=== PATIENT | female | born 1955 | race Caucasian/White ===

== ENCOUNTER 2018-08-18 12:20 | Emergency (ER) | payer MEDICAID ==
[~2018-08-18] VITALS: Ht 170.2 cm; Wt 111.1 kg
[2018-08-18 12:35] VITALS: BP_SYST 148
[2018-08-18 14:14] VITALS: BP_SYST 150
[2018-08-18 14:22] LABS: BILIRUBIN,URINE NEGATIVE (NEGATIVE); BLOOD, URINE 3+ (NEGATIVE); CLARITY/URINE HAZY (CLEAR); COLOR,URINE YELLOW (YELLOW); GLUCOSE,URINE NEGATIVE (NEGATIVE); KETONES,URINE NEGATIVE (NEGATIVE); LEUKOCYTE ESTERASE ,URINE TRACE (NEGATIVE); NITRITE, URINE POSITIVE (NEGATIVE); PH,URINE 5.5 (5.0-8.0); PROTEIN URINE TRACE (NEGATIVE)
[2018-08-18 14:32] LABS: BACTERIA,URINE MANY /HPF (None Seen); RBC,URINE 50-80 /HPF (0-3)
[2018-08-18 14:33] LABS: MUCUS,URINE None Seen /LPF (None Seen)
== END 2018-08-18 14:13 | disposition home or self-care (01) ==
LOC: SED 12:20
DX: N39.0 Urinary tract infection, site not specified (principal); I10 Essential (primary) hypertension
CPT/HCPCS: 81000-TC; 87086; 87186-TC; 99283

== ENCOUNTER 2020-03-29 11:35 | Emergency (ER) | payer MEDICAID ==
[~2020-03-29] VITALS: Ht 170.2 cm; Wt 122.5 kg
[~2020-03-29 11:35] MED LIST: RIVA20TA PO
[2020-03-29 11:37] VITALS: BP_SYST 153
--- NOTE | 2020-03-29 11:42 | NUR ---
LUPILLO Camacho at bedside examining patient.
--- NOTE | 2020-03-29 11:42 | NUR ---
Patient to ER bed 05 to gown for evaluation. Side rails up.
--- NOTE | 2020-03-29 11:45 | NUR ---
pt arrives from home. Dropped a heavy cup on the right third toe. pt had difficulty controlling the bleeding. She takes xeralto on a regular basis.
--- NOTE | 2020-03-29 11:54 | NUR ---
x-ray at the bedside
[2020-03-29 12:24] VITALS: BP_SYST 153
--- NOTE | 2020-03-29 12:25 | NUR ---
Patient given written and verbal discharge instructions and verbalizes understanding. ER MD discussed with patient the results and treatment provided. Patient in stable condition. ID arm band removed. Patient educated on pain management and to follow up with PMD. Pain Scale 0/10.Opportunity for questions provided and answered. Medication side effect fact sheet provided.
== END 2020-03-29 12:25 | disposition home or self-care (01) ==
LOC: SED 11:35
DX: S99.921A Unspecified injury of right foot, initial encounter (principal); I48.91 Unspecified atrial fibrillation; I10 Essential (primary) hypertension; W22.8XXA Striking against or struck by other objects, initial encounter; Y93.89 Activity, other specified; Y92.89 Other specified places as the place of occurrence of the external cause; Y99.8 Other external cause status
CPT/HCPCS: 99283

== ENCOUNTER 2022-09-12 12:04 | Emergency (ER) | payer OTHER, MEDICAID ==
[~2022-09-12] VITALS: Ht 170.2 cm; Wt 117.9 kg
[2022-09-12 12:14] VITALS: BP_SYST 115
[2022-09-12] MEDS ORDERED: AUG875 PO (12:21)
[2022-09-12] MEDS ORDERED: DEC4 PO (12:21)
[2022-09-12] MEDS ORDERED: OFLO5DRO LEFT EYE (12:25)
== END 2022-09-12 12:28 | disposition home or self-care (01) ==
LOC: SED 12:04
DX: J02.9 Acute pharyngitis, unspecified (principal); H10.32 Unspecified acute conjunctivitis, left eye; R13.10 Dysphagia, unspecified; R09.81 Nasal congestion; E11.9 Type 2 diabetes mellitus without complications; I10 Essential (primary) hypertension; Z79.899 Other long term (current) drug therapy
CPT/HCPCS: 99283